=== PATIENT | female | born 1990 | race Caucasian/White ===

== ENCOUNTER 2022-04-05 23:40 | Inpatient (IN) | payer MEDICAID, SELFPAY ==
[2022-04-06] VITALS (12 sets, daily range): BP systolic 117–149; BP diastolic 69–83; PULSE 60–77; RESP 18–20; TEMP 36.5–36.7; O2SAT 97; BMI 65.7
[2022-04-06] MEDS: OXYTOCIN 10 UNIT/ML INJ IM (03:27)
[2022-04-06] MEDS: LIDOCAINE 1 % PF 30 ML INJECTION (03:38)
[2022-04-06 05:45] LABS: Blood Urea Nitrogen* 14 mg/dL (5-24); Creatinine* 0.8 mg/dL (0.5-1.5); Estimated Glomerular Filt Rate 99.71
[2022-04-06 05:46] LABS: Alanine Aminotransferase* 20 U/L (4-35); Aspartate Amino Transferase* 33 U/L (12-35)
[2022-04-06 05:47] LABS: Creatinine Urine 68.4 mg/dL; Total Protein Urine 11 mg/dL
--- NOTE | 2022-04-06 07:11 | PM.OBPRCVD ---
Procedure Delivery date: 04/06/22 Intrapartal events: Precipitous Labor <3 Hrs Delivery monitor: external FHT and external uterine Route of delivery: Laceration description: Perineal - 1st Degree Delivery repair: Vicryl Estimated blood loss (mL): 100 Anesthesia type: Local Disposition: floor Narrative: Patient was admitted for SROM followed by spontaneous labor. Intermittent auscultation throughout labor was reassuring. SROM noted at 0945 pm 04/05/2022 with clear fluid. Patient was examined by CNM about 0140 am and planned to rest. CNM was urgently called into room as patient was pushing on the toilet and head was visible. CNM arrived as head was , mother was pushing on the toilet. heart tones were not assessed during 2nd stage due to precipitous delivery. of a viable male at 0323 AM. Vertex delivered OA. No nuchal cord or shoulder. Body delivered easily and without incident. passed to mothers abdomen with a vigorous cry. Mother assisted to bed. Cord was clamped and cut at > 5 minutes. APGARS were 8 at one minute and 8 at five minutes respectively. Mouth was bulb suctioned. Intact placenta with a 3 vessel cord delivered spontaneous at 0337 AM. Fundus firm. 1st degree identified and repaired in typical fashion. QBL 100 cc. Mother and baby stable; mother plans to breastfeed. Infant weight 8lb 9oz. [place] Gender: Male presentation: vertex Placental Delivery Description: Spontaneous Cord Description: 3 Vessels total score - 1 minute: 8 total score - 5 minute: 8
--- NOTE | 2022-04-06 08:48 | PC.NURSE ---
Pt on Covid precautions for positive PCR test. Upon entering pt's room for morning assessments, pt not wearing a mask while holding infant. Educated pt about current recommendations for covid positive mothers and infants. Mother understood teaching. Encouraging mother to wear mask when staff is in the room.
--- NOTE | 2022-04-06 16:26 | PM.OBHPLI ---
OB - H&P: HPI Labor/Induction History of Present Illness Chief complaint: Maternity Narrative: Randee Ward is a 31 year old female PFSH PFSH Social History Smoking Status: Never smoker Meds Home Medications and Allergies Allergies Allergy/AdvReac Type Severity Reaction Status Date / Time No Known Allergies Allergy Unverified 04/06/22 04:08 OB - H&P: Exam Physical Exam: Vital signs: Temp Pulse Resp BP Pulse Ox 98.0 F 68 20 132/71 97 04/06/22 15:56 04/06/22 15:56 04/06/22 12:00 04/06/22 15:56 04/06/22 12:00 OB - Results Labs Labs: BMP 04/06/22 01:50 BUN 14 Creatinine 0.8 Liver Function 04/06/22 Range/Units 01:50 AST 33 (12-35) U/L ALT 20 (4-35) U/L Procedures Vaginal Delivery presentation: vertex
[2022-04-07 00:06] VITALS: BP 121/76; PULSE 55; RESP 16; TEMP 36.7; O2SAT 96
[2022-04-07] MEDS: IBUPROFEN 600 MG TABLET PO (00:09)
[2022-04-07] MEDS: DOCUSATE SODIUM 100 MG CAPSULE PO (00:12)
[2022-04-07 04:14] VITALS: BP 135/80; PULSE 48; TEMP 36.5; O2SAT 97
[2022-04-07 08:01] LABS: Hemoglobin A1C* 4.72 % (0-5.6)
[2022-04-07 09:03] VITALS: BP 131/81; PULSE 57; TEMP 36.4; O2SAT 57
[2022-04-07 09:12] VITALS: PULSE 57
--- NOTE | 2022-04-07 09:37 | P.DS_ITS ---
DS: Providers Provider Time Seen by Provider: 09:37 Date Seen: 04/07/22 Date of admission: 04/05/22 23:40 Primary care physician: Latisha Junior MD Admitting Clinician: Fifi Holguin CNM Attending Physician on discharge: KARIE Rosa Date of Discharge: 04/07/22 DS: Diagnosis Discharge Diagnosis (1) NVD (normal vaginal delivery): Status: Acute (2) Lactating mother: Status: Acute Exam Const: Vital Signs, click to edit/add: Vital Signs - 24 hr 04/06/22 12:00 04/06/22 15:56 04/06/22 19:45 Temperature 97.7 F 98.0 F Pulse Rate [Left P ulse Oximeter] Pulse Rate [Pulse Oximeter] 77 68 67 Respiratory Rate 20 18 Blood Pressure [Le ft Arm] 130/77 132/71 126/74 Pulse Oximetry 97 97 04/07/22 00:06 04/07/22 04:14 04/07/22 09:03 Temperature 98.0 F 97.7 F 97.6 F Pulse Rate [Left P ulse Oximeter] Pulse Rate [Pulse Oximeter] 55 L 48 L 57 L Respiratory Rate 16 Blood Pressure [Le ft Arm] 121/76 135/80 131/81 Pulse Oximetry 96 97 57 L 04/07/22 09:12 Temperature Pulse Rate [Left P ulse Oximeter] 57 L Pulse Rate [Pulse Oximeter] Respiratory Rate Blood Pressure [Le ft Arm] Pulse Oximetry Documenting provider has reviewed patient's vital signs: yes Common normals: no apparent distress, oriented x3, no limitations, healthy appearing, alert and well nourished General appearance: cooperative, comfortable and well kempt Orientation/consciousness: Yes awake, Yes oriented to person, Yes oriented to place and Yes oriented to time HENMT: Common normals: normocephalic, head/scalp atraumatic, external ears normal and external nose normal Head and scalp: normocephalic and atraumatic Nose: external nose normal External ear: external ears normal Neck & C-Spine: Common normals: full ROM and supple Chest: Common normals: inspection of chest normal Resp: Common normals: normal respiratory effort, no retractions, no use of accessory muscles and clear to auscultation bilaterally Auscultation: clear to auscultation bilaterally Cardio: Common normals: regular rate, regular rhythm and no murmurs Rate: regular rate Rhythm: regular rhythm GI: Common normals: soft to palpation and non-tender Inspection: normal to inspection Auscultation: normoactive bowel sounds Palpation: soft and other (FF@ U) : Common normals: external appearance normal Speculum exam - vagina: vaginal bleeding (Lochia WNL) OB/external & speculum: vaginal laceration (Healing well) and vaginal bleeding (Lochia WNL) Extremity: Common normals: normal to inspection and full ROM Other: Mild pedal edema bilaterally Neuro: Common normals: oriented x3 Sensorium/orientation: awake, alert, oriented to person, oriented to place and oriented to time Psych: Appearance: well kempt Skin: Common normals: no rashes or lesions noted General skin exam: no rashes or lesions noted OB - DS: Summary Hospital Course Hospital Course: Randee was admitted to L & D for PROM. She is a G5 now P5. She had a precipitous delivery. She was also noted to be covid positive during labor. She is ambulating w/o difficulty. VSS and remains afebrile. She is , which she states is going well. She is voiding w/o difficulty. She denies any signs of preeclampsia, and is aware of what to observe for at home. Her BPs are WNL but elevated for her. Peripartum Data Infant delivery method: Vaginal Laceration description: Perineal - 1st Degree (repaired) complications: none and other (Covid + at delivery) [place] Infant Gender: Male Status at Discharge Functional status at discharge: independent ambulation Time Spent with Patient Time attestation: Total time spent providing and/or coordinating discharge services: Time spent: Less than 30 minutes Discharge Plan Discharge Disposition: Home, Self-Care Date of Admission: 04/05/22 23:40 Attending Provider on Discharge: Nandini Briscoe Primary Care Provider: Latisha Junior Condition: Stable Anticipated Discharge Date/Time: 04/07/22 10:07 Discharge Medications: New acetaminophen 500 mg Tablet 1,000 mg PO Q6H PRNQty: 90 0RF Rx Instructions: As needed per dosing instructions on box calcium carbonate 200 mg calcium (500 mg) Tablet,Chewable 1,000 - 2,000 mg PO Q2H PRNQty: 20 0RF docusate sodium 100 mg Capsule 100 mg PO DAILY PRNQty: 100 0RF Rx Instructions: Take 1-2 caps daily as needed for constipation ibuprofen 600 mg Tablet 600 mg PO Q6H PRNQty: 60 0RF pramoxine 1 % Foam 1 applic topical QID PRNQty: 15 0RF Lanolin (HPA) 100 % Cream 1 applic topical Q1H PRNQty: 7 0RF Discharge Orders: Discharge Order (Routine); Ordered 04/07/22 Ordered By: Nandini Briscoe Patient Education: Vaginal Delivery (DC) Activity Level: Activity as Tolerated Discharge Diet: Regular Referrals: Latisha Junior MD [Primary Care Provider] - [facility]
== END 2022-04-07 11:43 | disposition home or self-care (01) | DRG 805 ==
PROVIDERS: Admitting Provider Advanced Practice Midwife; PCP Family Medicine
DX: O42.02 Full-term premature rupture of membranes, onset of labor within 24 hours of rupture (principal); U07.1 COVID-19; Z37.0 Single live birth; O62.3 Precipitate labor; O70.0 First degree perineal laceration during delivery; Z86.16 Personal history of COVID-19; Z3A.39 39 weeks gestation of pregnancy
CPT/HCPCS: 36415; 82565; 83036; 84156; 84450; 84460; 84520; 86850; 86900; 86901; 99213; A9270; J2001; J2590

== ENCOUNTER 2022-05-31 14:41 | Outpatient (CLI) | payer MEDICAID, SELFPAY | END 2022-05-31 14:42 | disposition home or self-care (01) | LOC: NFLDREF 14:42 | PROVIDERS: PCP Family Medicine; Visit Provider Advanced Practice Midwife | DX: Z39.2 Encounter for routine postpartum follow-up (principal); R53.83 Other fatigue | CPT/HCPCS: 84443 ==